=== PATIENT | female | born 1945 | race African-American/Black ===

== ENCOUNTER 2019-03-05 14:42 | Outpatient (CLI) | payer BC, MEDICARE ==
--- NOTE | 2019-03-05 15:20 | RAD ---
EXAM: Chest PA and lateral: HISTORY: Pneumonia. COMPARISON: None FINDINGS: Heart: Mildly enlarged Aorta: Mildly ectatic Pulmonary vessels: Normal Costophrenic angles: Costophrenic angles are clear. Lungs: No consolidation or masses. Pneumothorax: No pneumothorax Osseous structures: No osseous abnormalities IMPRESSION: No acute cardiopulmonary process.
== END 2019-03-05 14:43 | disposition home or self-care (01) ==
LOC: RAD 14:42
PROVIDERS: ATTEND Family Medicine
DX: J18.9 Pneumonia, unspecified organism (principal)
CPT/HCPCS: 71046

== ENCOUNTER 2019-03-06 15:05 | Emergency (ER) | payer BC, MEDICARE ==
[2019-03-06 18:04] LABS: #Eosinphils 0.2 thou/uL (0.0-0.7); #Lymphocytes 1.1 thou/uL (1.20-3.40); #Monocytes 0.6 thou/uL (0.11-0.59); #Neutrophils 4.9 thou/uL (1.40-6.50); %Basophils 0.6 % (0.0-1.0); %Eosinophils 2.2 % (0.0-10.0); %Lymphocytes 16.4 % (21.0-51.0); %Monocytes 9.2 % (0.0-10.0); %Neutrophils 71.6 % (42.0-75.0); Hemoglobin 10.1 g/dL (12.0-16.0); Mean Corpuscular HGB CONC 32.2 g/dL (32.0-36.0); Mean Corpuscular Volume 93.1 fL (78.0-98.0); Mean Platelet Volume 7.5 fL (7.4-10.4); Platelet Count 218 thou/uL (130-400); RBC Distribution Width 14.7 % (11.5-14.5); Red Blood Cell (RBC) Count 3.36 mill/uL (4.20-5.40); White Blood Cell (WBC) Count 6.9 thou/uL (4.8-10.8)
[2019-03-06 18:32] LABS: ALT (SGPT) Less than 7 U/L (8-55); AST (SGOT) 16 U/L (5-34); Alkaline Phosphatase 76 U/L (40-150); Anion Gap 12 mmol/L (10-20); BUN (Urea Nitrogen) 7 mg/dL (9.8-20.1); Bilirubin, Total 0.4 mg/dL (0.2-1.2); Calc. Creatinine Clearance 0 mL/min (70-130); Calcium 8.1 mg/dL (7.8-10.44); Carbon Dioxide 24 mmol/L (23-31); Chloride 108 mmol/L (98-107); Estimated GFR-MDRD 85; Globulin 3.3 g/dL (2.4-3.5); Glucose 84 mg/dL (83-110); Protein, Total 6.3 g/dL (6.0-8.3); Sodium 141 mmol/L (136-145)
[2019-03-06 18:38] LABS: Bilirubin Negative (Negative); Blood, Urine Negative (Negative); Clarity Clear (Clear); Glucose, Urine (Dipstick) Normal (Negative); Leukocyte 500 Leu/uL (Negative); Nitrite Negative (Negative); Protein, Urine (Dipstick) 30 mg/dL (Neg-Trace); Urobilinogen Normal mg/dL (Less than 2)
[2019-03-06 18:38] LABS: Potassium 2.7 mmol/L (3.5-5.1)
[2019-03-06] MEDS ORDERED: Potassium Chloride 20 MEQ TAB ONE (18:45)
[2019-03-06 18:47] LABS: RBC/HPF 0-3 HPF (0-3)
[2019-03-06 18:48] LABS: Bacteria/HPF 1+ HPF (None Seen); Mucous/LPF 1+ LPF (<2+); Transitional Epithelial 0-3 HPF (None Seen)
[2019-03-06] MEDS ORDERED: Ondansetron ODT 4 MG TAB ONE (18:50)
--- NOTE | 2019-03-06 19:01 | RAD ---
RADIOGRAPH CHEST 2 VIEW: DATE: 03/06/2019 HISTORY: 73-year-old female with generalized weakness and dehydration FINDINGS: The thoracic aorta is tortuous and ectatic. There is no evidence of airspace density, pulmonary edema , or pneumothorax. There is no cardiomegaly or pleural effusion. Thickening of bilateral paratracheal stripes, left greater than right. IMPRESSION: 1) No acute cardiopulmonary findings. 2) ectasia of thoracic aorta. 3) thickening of bilateral paratracheal stripe. Possible etiologies include ectasia and tortuosity of great vessels versus mediastinal lymphadenopathy or mass. Recommend further evaluation with CT of the chest (preferably with IV contrast unless contraindicated).
== END 2019-03-06 19:40 | disposition home or self-care (01) ==
LOC: ERS 15:05
DX: N39.0 Urinary tract infection, site not specified (principal); E87.6 Hypokalemia; J45.909 Unspecified asthma, uncomplicated; I10 Essential (primary) hypertension
CPT/HCPCS: 36415; 71046; 80053; 80306; 81003; 81015; 85025; 93005; 96360; 96361; Q0162

== ENCOUNTER 2019-05-07 12:11 | Day surgery (SDC) | payer BC ==
[2019-05-06 17:05] VITALS: BMI 30.9
[2019-05-07] MEDS ORDERED: Ketamine 50 MG/ML (10ML VIAL) ONE (17:20)
--- NOTE | 2019-05-07 21:56 | OP ---
DATE OF PROCEDURE: 05/07/2019 PROCEDURE PERFORMED: Colonoscopy. PREPROCEDURE DIAGNOSES: 1. Colon screening. 2. Recent 100-pound weight loss. POSTPROCEDURE DIAGNOSES: 1. Exam to cecum; good bowel preparation. 2. Diffusely redundant colon, mild to moderate severity. 3. Moderate diverticulosis coli with no evidence of acute diverticulitis. 4. Small internal hemorrhoids. 5. Otherwise normal colonoscopy. No polyp, neoplasm, or stricture identified. PROCEDURE IN DETAIL: Written informed consent was obtained. Upon completion of the EGD, the patient was repositioned for the colonoscopy. Total intravenous anesthesia was administered by Dr. Gerard Skinner and associates. The patient was placed in the left lateral decubitus position. A digital rectal exam showed small perianal tags. A Pentax video colonoscope was inserted through the anal canal and advanced under direct visualization to the cecum. Position in the cecum was verified by clear identification of the appendiceal orifice and the ileocecal valve. The quality of the bowel preparation was good. Each colon segment was examined carefully as the colonoscope was slowly withdrawn from the cecum. The colon was diffusely redundant. The mucosa appeared somewhat pale. The vascular pattern appeared grossly normal. Frequent diverticular orifices, both small and large were noted throughout the colon. The severity was moderate in degree. No polyp, neoplasm, or luminal narrowing was identified. In the rectum, a retroflexed view demonstrated small internal hemorrhoids. The colon was decompressed as the colonoscope was completely removed from the patient. There were no immediate complications. She was transferred to the Day Stay surgery area for postprocedure monitoring. RECOMMENDATIONS: 1. Resume previous medications. 2. Resume diet as detailed in my EGD report. 3. Repeat colonoscopy for screening purposes is not advised due to patient's age of 74 and absence of polyps today. 4. Follow up in GI clinic after she has met with the specialist in [place]. Job ID: [id number]
--- NOTE | 2019-05-07 22:49 | OP ---
DATE OF PROCEDURE: 05/07/2019 PRIMARY CARE PHYSICIAN: Herrera Marin MD PROCEDURES PERFORMED: Esophagogastroduodenoscopy with esophageal balloon dilation and biopsy. PREPROCEDURE DIAGNOSES: 1. Dysphagia. 2. Nausea, vomiting. 3. History of gastric ulcer. 4. 100-pound weight loss since September 2017. POSTPROCEDURE DIAGNOSES: 1. Exam to second portion of duodenum. 2. Dilated boggy esophagus with no obvious peristalsis, biopsied at 35 cm. 3. Tight gastroesophageal junction at 40 cm, traversed. 4. Status post 18 mm TTS balloon dilation of the gastroesophageal junction. 5. Normal-appearing stomach without ulceration. 6. No gastric outlet obstruction. 7. Normal duodenum. PROCEDURE IN DETAIL: Written informed consent was obtained. The patient was brought to the endoscopy suite. Total intravenous anesthesia was administered by Dr. Gerard Skinner and associates. The patient was placed in the left lateral decubitus position. A bite block was inserted into the mouth. The Pentax video diagnostic gastroscope was introduced into the oral cavity and the esophagus was carefully intubated. The gastroscope was advanced under direct visualization to the second portion of the duodenum. Endoscopic findings revealed a diffusely dilated boggy-appearing esophagus that contained a large amount of clear fluid and oral secretions that was removed with copious suctioning. Esophageal motility appeared decreased. There was some narrowing at the gastroesophageal junction and mild forward pressure was needed with the endoscope tip to traverse the GEJ. There was no evidence of gastric ulcer, bleeding, or gastric mass. A careful retroflex exam was made of the fundus and cardia. The pylorus was patent and appeared grossly normal. There was no evidence of gastric outlet obstruction. The duodenum from the bulb to the second portion appeared intact. Using an 18 mm TTS balloon dilator, the GEJ was carefully dilated at all 3 stages starting at 15 mm to 18 mm. Post dilation, a small mucosal disruption was noted at 37 cm, but there was no overt perforation or active bleeding. Biopsies were obtained at 35 cm from the incisors for histopathology. The stomach and esophagus were decompressed as the endoscope was completely removed from the patient. She was then repositioned for the colonoscopy. 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 RECOMMENDATIONS: 1. Await pathology results. 2. Ask the patient to call me in 1 week for pathology results. 3. Clear liquids and low residue diet. 4. Add Ensure 1 to 2 cans daily as tolerated. We will ask the patient to sip the Ensure throughout the day instead of drinking the entire can at once. 5. Refer the patient to Dr. Zane Hadley at [facility] for motility testing and consideration of surgical therapy. Job ID: [id number]
== END 2019-05-07 19:16 | disposition home or self-care (01) ==
LOC: SDC 12:11
PROVIDERS: ATTEND Internal Medicine Gastroenterology
DX: Z12.11 Encounter for screening for malignant neoplasm of colon (principal); K20.9 Esophagitis, unspecified; K57.30 Diverticulosis of large intestine without perforation or abscess without bleeding; K64.8 Other hemorrhoids; Q43.8 Other specified congenital malformations of intestine; R11.10 Vomiting, unspecified; R63.4 Abnormal weight loss; R63.0 Anorexia; E89.0 Postprocedural hypothyroidism; E66.3 Overweight; Z68.32 Body mass index [BMI] 32.0-32.9, adult; Z79.899 Other long term (current) drug therapy
CPT/HCPCS: 88305; 88312; 88313

== ENCOUNTER 2020-10-30 02:04 | Emergency (ER) | payer BC ==
[2020-10-30] MEDS ORDERED: Sodium Bicarb 50 MEQ/50 ML Abboject 8.4% SYRINGE ONE (02:22)
[2020-10-30] MEDS ORDERED: Atropine Sulfate 1 mg/10 ml Syringe ONE (02:22)
[2020-10-30] MEDS ORDERED: Calcium Chloride 1 GM/10 ML Abboject SYRINGE ONE (02:22)
[2020-10-30] MEDS ORDERED: Amiodarone 150 MG/3 ML VIAL ONE (02:22)
[2020-10-30] MEDS ORDERED: EPINEPHrine 1 MG/10 ML Abboject SYRINGE ONE ×2 (02:22→02:34)
[2020-10-30] MEDS ORDERED: Norepinephrine 8 MG/0.9% NS 0 ML ONE (02:53)
[2020-10-30 03:04] LABS: Mean Corpuscular HGB CONC 29.4 g/dL (32.0-36.0); Mean Corpuscular Hemoglobin 30.6 pg (27.0-31.0); Platelet Count 160 thou/uL (130-400); RBC Distribution Width 14.9 % (11.5-14.5); Red Blood Cell (RBC) Count 2.93 mill/uL (4.20-5.40); White Blood Cell (WBC) Count 11.8 thou/uL (4.8-10.8)
[2020-10-30 03:17] LABS: ALT (SGPT) 151 U/L (8-55); AST (SGOT) 205 U/L (5-34); Albumin 2.1 g/dL (3.4-4.8); Alkaline Phosphatase 104 U/L (40-110); Anion Gap 29 mmol/L (10-20); BUN (Urea Nitrogen) 15 mg/dL (9.8-20.1); Bilirubin, Total 0.2 mg/dL (0.2-1.2); Calc. Creatinine Clearance 0 mL/min (70-130); Carbon Dioxide 11 mmol/L (23-31); Chloride 109 mmol/L (98-107); Globulin 2.4 g/dL (2.4-3.5); Glucose 416 mg/dL (83-110); Potassium 4.5 mmol/L (3.5-5.1); Protein, Total 4.5 g/dL (5.8-8.1); Sodium 144 mmol/L (136-145)
[2020-10-30 03:28] LABS: Band 9 % (5-11); Eosinophils 1 % (0-10); Lymphocytes 65 % (21-51); MDiff Complete? YES; Metamyelocyte 1 % (0-0); Monocytes 2 % (0-10); Neutrophil 21 % (42-75); Nucleated RBC 2 % (0); Reactive Lymphocytes 1 % (0-10)
[2020-10-30 03:32] LABS: Calcium 12.1 mg/dL (7.8-10.44)
[2020-10-30 03:37] LABS: CKMB 1.2 ng/mL (0-6.6)
== END 2020-10-30 02:55 | disposition expired ==
LOC: ERS 02:04
DX: I46.9 Cardiac arrest, cause unspecified (principal); I10 Essential (primary) hypertension; J45.909 Unspecified asthma, uncomplicated
CPT/HCPCS: 31500; 32551; 71045; 80053; 82553; 83605; 83880; 84484; 85025; 85379; 92950; 93005; 94760; 96365; 96374; 96375; 96376; J0171; J0282; J0461